=== PATIENT | female | born 1990 | race Caucasian/White ===

== ENCOUNTER 2023-08-28 18:01 | Observation (INO) | payer MEDICAID, SELFPAY ==
--- NOTE | ~2023-08-28 | XR_ITS ---
EXAMINATION: XR LUMBOSACRAL SPINE CLINICAL INFORMATION: Back pain with question muscle strain COMPARISON: None available. TECHNIQUE: Three views of the lumbosacral spine. FINDINGS: There is a scoliosis convex to the right. There is mild disc space narrowing at L4-L5. Vertebral body heights and remainder of disc spaces are well preserved. No fractures or bony destructive lesions. XR/XR lumbar spine 2-3V IMPRESSION: Mild disc space narrowing L4-L5.
[2023-08-28 18:11] VITALS: BP 124/84; BP 128/84; PULSE 71; PULSE 80; RESP 16; TEMP 36.8; O2SAT 98; BMI 32.5
[2023-08-28 18:20] VITALS: BP 124/80; PULSE 78; RESP 16; TEMP 36.8; O2SAT 95
--- NOTE | 2023-08-28 18:39 | ED_ITS ---
HPI - Back Pain/Injury General Chief Complaint: Back Pain/Injury Stated Complaint: back pain x2 weeks, non ambulatory, fentanyl given Time Seen by Provider: 08/28/23 18:31 Source: patient, EMS, RN notes reviewed and old records reviewed Mode of arrival: EMS History of Present Illness ED Provider: Brittny Kong PA-C HPI Narrative: 32-year-old female with no significant past medical history presenting to the ED complaining lower back pain and spasming worsening today s/p injury at the gym last week. 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 States she is unable to stand or move secondary to pain. Denies direct injury, trauma/fall, numbness, tingling, radiation of pain, weakness, incontinence/retention, fever, abdominal pain Related Data Allergies Allergy/AdvReac Type Severity Reaction Status Date / Time amoxicillin Allergy Intermediate Rash Verified 08/28/23 18:17 amoxapine Allergy Rash Verified 08/28/23 18:17 Review of Systems 2 Review of Systems: Constitutional: No Fever, No Chills Cardiovascular: No Chest Pain, No SOB Respiratory: No Cough Gastrointestinal: No Nausea, No Vomiting, No Diarrhea, No Constipation, No Abdominal pain Genitourinary: No Dysuria, No Urinary Incontinence/retention, No Flank Pain Musculoskeletal: + joint pain, No Myalgias, No Joint Swelling Skin: No Skin Lesions, No rash Neuro: No Weakness, No Numbness, No Paresthesias Yes all other systems are reviewed and are negative Constitutional: Constitutional: Reports as per [facility] Past Medical History Attestation statement: The following information was validated with the patient. Source: old records reviewed Social History Social History Smoked in Last 30 Days: Yes Substance Use Type: Marijuana Substance Use Frequency: Daily Substance Use Frequency Other:: nightly Last Used Substance: Days (ago) Any prior treatment program specific to substance use: No Advance Directives: No Advance Directives Information Provided: No Do you have a plan to hurt others: No Plan Patient : No Physical Exam 2 Vital Signs: Vital Signs: Last Vital Signs Temp 98.3 F 08/28/23 21:12 Pulse 62 08/28/23 21:12 Resp 17 08/28/23 21:12 BP 119/71 08/28/23 21:12 Pulse Ox 99 08/28/23 21:12 O2 Del Method Room Air 08/28/23 21:12 BMI result Body Mass Index 32.5 Const: General: cooperative, healthy appearing and no acute distress O rientation/consciousness: patient oriented x3 Limitations: no limitations HEENT: Head: Yes normal to inspection and Yes atraumatic Ears: hearing grossly normal bilaterally General nose exam: Normal external nose present Face and sinus: Yes normal facial exam Eyes: General: appearance normal, both eyes and all related structures EOM: EOMs intact bilaterally Neck: Neck: Yes normal visual inspection and Yes no meningeal signs Resp: Effort & Inspection: normal respiratory effort and no respiratory distress Auscultation: clear to auscultation bilaterally Cardio: Rate: regular rate Heart sounds: S1 normal heart sound present and S2 normal heart sound present GI: Inspection: Yes normal to inspection Palpation (GI): Soft to palpation, nontender, no guarding and not rigid Back/Spine/Pelvis: Other: No midline cervical/thoracic/lumbar spinous tenderness/step-off or deformity. + bilateral lumbar paraspinal reproducible tenderness. No rash/erythema or ecchymosis Skin: Rashes: no rashes Wounds: no wounds Neuro: Other: Strength intact throughout. No saddle anesthesia. Sensation intact to light touch. Neurovascular intact distally General: patient oriented x3, gait normal, tone normal, moves all extremities and no meningeal signs Cranial nerves: Yes CN's II-XII intact bilaterally Extrem: General: Yes normal to inspection Course Course Course Narrative: -patient continues to yell out in discomfort/spasming after multiple doses of IV pain medication including morphine, Toradol, and p.o. Flexeril >> will try 1 mg of IV Dilaudid and re-evaluate >> patient now able to turn on her side for physical exam after IV Dilaudid, however did experience spasming. Plan likely will be for admission unless can achieve better pain control -[id number]--patient is still having severe back spasms. Plan is for admission. Case discussed with Dr. Cedeno who accepted Medications Administered Discontinued Medications Generic Name Dose Route Start Last Admin Trade Name Freq PRN Reason Stop Dose Admin Cyclobenzaprine HCl 10 mg 08/28/23 18:35 08/28/23 18:42 Cyclobenzaprine Hcl 10 Mg Tablet PO 08/28/23 18:36 10 mg ONCE ONE Administration Hydromorphone HCl 1 mg 08/28/23 20:08 08/28/23 20:13 Hydromorphone Hcl 1 Mg/Ml Syringe IVPUSH 08/28/23 20:09 1 mg ONCE ONE Administration Protocol Ketorolac Tromethamine 15 mg 08/28/23 19:36 08/28/23 19:44 Ketorolac Tromethamine 15 Mg/Ml Vial IVPUSH 08/28/23 19:37 15 mg ONCE ONE Administration Morphine Sulfate 4 mg 08/28/23 18:35 08/28/23 18:41 Morphine Sulfate 4 Mg/Ml Cartridge IVPUSH 08/28/23 18:36 4 mg ONCE ONE Administration Protocol Morphine Sulfate 4 mg 08/28/23 19:31 08/28/23 19:45 Morphine Sulfate 4 Mg/Ml Cartridge IVPUSH 08/28/23 19:32 4 mg ONCE ONE Administration Protocol Medical Decision Making Medical Decision Making MDM Narrative: 32-year-old female with no significant past medical history presenting to the ED complaining lower back pain and spasming worsening today s/p injury at the gym last week. On exam vital signs stable, yelling in discomfort, no midline spinous tenderness or red flag symptoms. No evidence of trauma. Concern for MSK pain/muscle spasming. Low suspicion for cauda equina/cord compression, fracture or epidural abscess Plan: Pain management, re-evaluate Please refer to course for remaining clinical decision making, interpretation of labs/imaging results, and discussions with consultants and/or family members. Differential Diagnosis Differential Diagnoses: The differential diagnosis associated with the presentation includes As above Admission/Observation Consideration of admission/observation: Escalation of care including admission/observation considered Lab Data 08/28/23 20:40 08/28/23 20:40 Labs: Lab Results 08/28/23 Range/Units 20:40 WBC 14.4 H (4.8-10.8) X10*3/uL RBC 4.07 L (4.20-5.50) X10*6/uL Hgb 12.0 (12.0-16.0) g/dl Hct 34.7 L (37.0-47.0) % MCV 85.3 (80.0-98.0) fL MCH 29.5 (27.0-33.0) pg MCHC 34.6 (31.0-35.0) g/dl RDW 12.0 (11.0-16.0) % Plt Count 217 (160-400) X10*3/uL MPV 9.9 (9.4-12.3) fL Immature Gran % (Auto) 0.3 (0.0-0.4) % Neut % (Auto) 83.8 H (45-73) % Lymph % (Auto) 12.3 L (20-40) % [place] % (Auto) 3.3 (2-11) % Eos % (Auto) 0.0 (0-4) % Baso % (Auto) 0.3 (0-2) % Lymph # (Auto) 1.8 (1.2-4.9) X10*3/uL [place] # (Auto) 0.5 (0.1-1.2) X10*3/uL Eos # (Auto) 0.0 (0.0-0.4) X10*3/uL Baso # (Auto) 0.1 (0.0-0.2) X10*3/uL Abs Immat Gran (auto) 0.04 H (0.00-0.03) X10*3/uL Absolute Neuts (auto) 12.0 H (2.0-8.3) x10*3/uL Absolute Nucleated RBC 0.000 (0.0-0.012) X10*3/uL Nucleated RBC % (auto) 0.0 (0.0-0.2) /100WBC Sodium 139 (135-145) mmol/L Potassium 3.5 (3.3-5.1) mmol/L Chloride 110 H (96-108) mmol/L Carbon Dioxide 20 L (22-29) mmol/L Anion Gap 13 (12-20) BUN 13 (9-16) mg/dL Creatinine 0.72 (0.5-1.4) mg/dL Estim Creat Clear Calc 106.0 Estimated GFR > 60 Random Glucose 92 (60-115) mg/dL Calcium 8.3 L (8.4-10.2) mg/dL Total Bilirubin 0.4 (0.0-1.0) mg/dL Direct Bilirubin 0.2 (0.0-0.5) mg/dL AST 14 (5-31) U/L ALT 16 (0-31) U/L Alkaline Phosphatase 69 (39-117) U/L Total Protein 6.8 (6.5-8.0) g/dL Albumin 4.0 (3.5-5.0) g/dL Beta HCG, Quant < 2 mIU/mL External Record Review External record reviewed: Inpatient record, Office record, Outpatient record, Prior outpatient labs, Prior outpatient radiology, Primary care record and Outside ED record Tests considered The following testing was considered but not selected: As above Critical Care Time Critical Care Time Critical Care Time: Yes Total Critical Care Time: 40 Attestation: I have personally provided critical care time exclusive of time spent on separately billable procedures. Time includes review of lab data, radiology results, discussion with consultants, and monitoring for potential decompensation. Intervention performed as documented. Discharge Plan Discharge Clinical Impression: Back muscle spasm Patient Disposition: Admitted As Inpatient Print Language: Ugandan
[2023-08-28 18:41] VITALS: RESP 16
[2023-08-28] MEDS: Morphine Sulfate 4 MG/ML CARTRIDGE IVPUSH ×2 (18:41→19:45)
[2023-08-28] MEDS: Cyclobenzaprine HCl 10 MG TABLET PO (18:42)
--- NOTE | 2023-08-28 18:49 | PC.NURSE ---
Pt reports pulling her back about 2 weeks ago at the gym w/back extensions. States a week ago it began to be more painful and the last couple days she has been unable to move from bed with severe back spasms. VSS and afebrile Pt is visibly uncomfortable with frequent crying out. She is unable to tolerate any movement. Provider at bedside, orders given for pain and muscle relaxer--Pt medicated per MAR. Further provider exam to be completed once Pt is more comfortable. Mother at bedside.
[2023-08-28 19:04] VITALS: BP 124/54; PULSE 95; RESP 17; TEMP 37.1; O2SAT 98
[2023-08-28] MEDS: Ketorolac Tromethamine 15 MG/ML VIAL IVPUSH ×2 (19:44→22:00)
[2023-08-28] MEDS: HYDROmorphone HCl 1 MG/ML SYRINGE IVPUSH ×2 (20:13→23:20)
[2023-08-28 20:45] LABS: MANUAL DIFF FLAG NO
[2023-08-28 20:50] LABS: Basophils Absolute Auto 0.1 X10*3/uL (0.0-0.2); Basophils Percent Auto 0.3 % (0-2); Hematocrit 34.7 % (37.0-47.0); Imm Gran Abs Auto 0.04 X10*3/uL (0.00-0.03); Imm Gran Pct Auto 0.3 % (0.0-0.4); Lymphocytes Absolute Auto 1.8 X10*3/uL (1.2-4.9); Lymphocytes Percent Auto 12.3 % (20-40); Mean Corpuscular HGB Conc 34.6 g/dl (31.0-35.0); Mean Corpuscular Hemoglobin 29.5 pg (27.0-33.0); Mean Corpuscular Volume 85.3 fL (80.0-98.0); Mean Platelet Volume 9.9 fL (9.4-12.3); Monocytes Absolute Auto 0.5 X10*3/uL (0.1-1.2); Monocytes Percent Auto 3.3 % (2-11); Neutrophils Percent Auto 83.8 % (45-73); Platelet Count 217 X10*3/uL (160-400); Red Blood Count 4.07 X10*6/uL (4.20-5.50); White Blood Count 14.4 X10*3/uL (4.8-10.8)
[2023-08-28 21:12] VITALS: BP 119/71; PULSE 62; RESP 17; TEMP 36.8; O2SAT 99
[2023-08-28 21:13] LABS: Alanine Aminotransferase 16 U/L (0-31); Alkaline Phosphatase 69 U/L (39-117); Anion Gap 13 (12-20); Aspartate Amino Transferase 14 U/L (5-31); Bilirubin Direct 0.2 mg/dL (0.0-0.5); Bilirubin Total 0.4 mg/dL (0.0-1.0); Blood Urea Nitrogen 13 mg/dL (9-16); Calcium 8.3 mg/dL (8.4-10.2); Carbon Dioxide 20 mmol/L (22-29); Chloride 110 mmol/L (96-108); Estimated Glomerular Filt Rate > 60; Glucose Random 92 mg/dL (60-115); Potassium 3.5 mmol/L (3.3-5.1); Sodium 139 mmol/L (135-145); Total Protein 6.8 g/dL (6.5-8.0)
[2023-08-28 21:15] LABS: HCG Quantitative < 2 mIU/mL
[2023-08-28 21:42] LABS: C Reactive Protein 0.34 mg/dL (< or = 0.50)
--- NOTE | 2023-08-28 22:09 | PC.NURSE ---
pt refused to move to apply the lidocane patch to her back, pt states, when I get more pain medicine pt states my back is spasming and I need a muscle relaxer
[2023-08-28 22:20] LABS: Erythrocyte Sedimentation Rate 10 MM/HR (0-20)
[2023-08-28 23:01] LABS: Appearance Urine Clear; Color Urine Yellow; Glucose Urine UA Negative (Negative); Leukocyte Esterase Urine Negative (Negative); Nitrite Urine Negative (Negative); PH 6.5 (5.0-9.0); Urine Blood Negative (Negative); Urine Ketones 40 mg/dL (Negative); Urine Protein Negative (Neg-Trace)
--- NOTE | 2023-08-28 23:08 | P.HPHOSP_ITS ---
History of Present Illness Date of Service: 08/28/23 Attending physician on admission: Emma Ruiz Chief Complaint: Lower back pain Juana Morton is a 32 years old woman who presents to the emergency department complaining of severe lower back pain which is intermittent in nature. It has been going on since which she attributes to injure at the gym. She denied any lower extremity numbness or urinary/defecation issues. HPI physical examination was limited as the patient was crying and very anxious. In the ED, she was found to to have normal vital signs. There are no significant electrolyte imbalances. Renal function is normal as well as LFTs. test is negative. Urinalysis is normal. Review of Systems 2 Review of Systems: Limited [facility] Social History Patient Tobacco Use Status: Current everyday Tobacco user Tobacco use type: Cigarette Cigarettes Per Day: 2 Second Hand Smoke Exposure: No Substance Use Type: Marijuana Meds Allergies Allergy/AdvReac Type Severity Reaction Status Date / Time amoxicillin Allergy Intermediate Rash Verified 08/28/23 18:17 amoxapine Allergy Rash Verified 08/28/23 18:17 Active Medications: Current Medications Acetaminophen (Acetaminophen 325 Mg Tablet) 975 mg PO TID [facility] Stop: 08/31/23 02:59 Hydromorphone HCl (Hydromorphone Hcl 1 Mg/Ml Syringe) 1 mg IVPUSH Q4H PRN; Protocol PRN Reason: Pain, Severe (Pain Scale 7-10) Lidocaine (Lidocaine 4 % Patch Adh..Patch) 2 patch TRANSDERMA DAILY [facility]; Protocol Naproxen (Naproxen 500 Mg Tablet) 500 mg PO TID [facility] Oxycodone HCl (Oxycodone Hcl Immed Release 5 Mg Tablet) 5 mg PO TID [facility] Stop: 08/30/23 21:01 Sodium Chloride (0.9 % Sodium Chloride Flush 3 Ml Syringe) [address] [facility] Home Medications ?Medication ?Instructions ?Recorded ?Confirmed ?Last Taken ?Type ibuprofen 800 mg tablet 800 mg PO Q8H PRN Pain 08/29/23 08/29/23 Unknown History Physical Exam 2 Vital Signs and Narrative: Vital Signs: Last Vital Signs Temp 98.3 F 08/28/23 21:12 Pulse 62 08/28/23 21:12 Resp 17 08/28/23 21:12 BP 119/71 08/28/23 21:12 Pulse Ox 99 08/28/23 21:12 O2 Del Method Room Air 08/28/23 21:12 BMI result Body Mass Index 32.5 Results Labs 08/28/23 20:40 08/28/23 20:40 Labs: Laboratory Results - last 24 hr 08/28/23 08/28/23 20:40 22:55 MCV 85.3 MCH 29.5 MCHC 34.6 RDW 12.0 Plt Count 217 MPV 9.9 Immature Gran % (Auto) 0.3 Neut % (Auto) 83.8 H Lymph % (Auto) 12.3 L [place] % (Auto) 3.3 Eos % (Auto) 0.0 Baso % (Auto) 0.3 Lymph # (Auto) 1.8 [place] # (Auto) 0.5 Eos # (Auto) 0.0 Baso # (Auto) 0.1 Abs Immat Gran (auto) 0.04 H Absolute Neuts (auto) 12.0 H Absolute Nucleated RBC 0.000 Nucleated RBC % (auto) 0.0 ESR 10 Anion Gap 13 Estim Creat Clear Calc 106.0 Estimated GFR > 60 Random Glucose 92 Calcium 8.3 L Total Bilirubin 0.4 Direct Bilirubin 0.2 AST 14 ALT 16 Alkaline Phosphatase 69 C-Reactive Protein 0.34 Total Protein 6.8 Albumin 4.0 Beta HCG, Quant < 2 Urine Color Yellow Urine Appearance Clear Urine pH 6.5 Ur Specific [place] 1.020 Urine Protein Negative Urine Glucose (UA) Negative Urine Ketones 40 Urine Blood Negative Urine Nitrite Negative Ur Leukocyte Esterase Negative Assessment and Plan (1) Back muscle spasm: Status: Acute (2) Anxiety: Status: Acute Plan Juana Morton is a 32 years old woman presents with: * Severe lower back pain, intractable. Likely due to severe muscle spasm. Observation. Start therapy with anti-inflammatory agents, antispasmodics, and opiate (prn). PT evaluation. * Anxiety. Valium. Quality Stroke Does the patient have a stroke diagnosis?: No VTE Prior VTE?: No VTE Risk Level:: Medical - moderate - high VTE Device Contraindication: Treatment Not Indicated VTE Drug Contraindication: Treatment Not Indicated
[2023-08-28] MEDS: diazePAM 2 MG TABLET PO (23:20)
[2023-08-28 23:31] VITALS: BP 108/69; PULSE 69; RESP 16; TEMP 36.6; O2SAT 93
--- NOTE | 2023-08-28 23:37 | PC.NURSE ---
Report given to Arlin RN, in overflow, all questions answered.
[2023-08-29] MEDS: 0.9 % Sodium Chloride Flush 3 ML SYRINGE IVFLUSH (02:31)
[2023-08-29] MEDS: HYDROmorphone HCl 1 MG/ML SYRINGE IVPUSH ×5 (02:31→23:54)
[2023-08-29] MEDS: Acetaminophen 325 MG TABLET 975 MG PO ×3 (03:24→20:33)
[2023-08-29] MEDS: Lidocaine 4 % Patch ADH..PATCH 2 PATCH TRANSDERMA (08:06)
[2023-08-29] MEDS: oxyCODONE HCl Immed Release 5 MG TABLET PO ×3 (08:06→20:34)
[2023-08-29] MEDS: Cyclobenzaprine HCl 10 MG TABLET PO ×2 (08:07→20:34)
--- NOTE | 2023-08-29 08:22 | MHC.EDTECH ---
Patient is refusing breakfast, patient is also refusing any liquids states she cant sit up to drink and she is requesting IV fluids.
--- NOTE | 2023-08-29 08:28 | PC.NURSE ---
Initial contact with pt. pt is agitated, rambling, rolling around on stretcher. she is adament that she needs IV fluids look at my pee it's so dark. pt refuses to drink water PO. refuses meal. states she wants to crawl outside for a cigarette. refuses to attempt to use restroom for ADLs. father at bedside. MD Wilian Ruiz messaged via [employer] requesting IV fluids.
--- NOTE | 2023-08-29 09:28 | PHA.MEDREC ---
Pharmacy Consult ? Medication Reconciliation Pharmacy has completed the medication reconciliation.
[2023-08-29] MEDS: Lactated Ringers 1,000 ML 100 ML IVCONT ×2 (09:45→20:41)
[2023-08-29] MEDS: Ketorolac Tromethamine 15 MG/ML VIAL IVPUSH ×3 (09:47→23:51)
[2023-08-29] MEDS: ALPRAZolam 0.5 MG TABLET PO ×2 (09:49→20:40)
[2023-08-29] MEDS: Baclofen 20 MG TABLET PO (09:49)
--- NOTE | 2023-08-29 10:35 | P.PNIM_ITS ---
Subjective Subjective Date of Service: 08/29/23 Interval History: seen and evaluated this morning very anxious and complaining of severe spasms no other overnight events Review of Systems Review of Systems: Yes all other systems are reviewed and are negative Physical Exam 2 Vital Signs: Vital Signs: Last Vital Signs Temp 97.8 F 08/28/23 23:31 Pulse 69 08/28/23 23:31 Resp 16 08/28/23 23:31 BP 108/69 08/28/23 23:31 Pulse Ox 93 08/28/23 23:31 O2 Del Method Room Air 08/28/23 23:31 BMI result Body Mass Index 32.5 Const: Other: Constitutional : Awake, interactive, very anxious Cardiovascular : RRR, no JVP, no lower extremity edema Respiratory : good bilateral air entry, no crackles, wheezes or rhonchi Gastrointestinal: soft, lax, Normal bowel sounds, Non tender back: no tenderness Neurological : Alert & oriented x3, No focal deficit Psych; Anxious, pressure speech, no hallucinations Objective Data Active Medications Acetaminophen (Acetaminophen 325 Mg Tablet) 975 mg PO TID [facility] Stop: 08/31/23 02:59 Last Admin: 08/29/23 03:24 Dose: 975 mg Documented By: HAYDEN Alprazolam (Alprazolam 0.25 Mg Tablet) 0.25 mg PO TID PRN PRN Reason: Anxiety Baclofen (Baclofen 10 Mg Tablet) 10 mg PO TID [facility] Cyclobenzaprine HCl (Cyclobenzaprine Hcl 10 Mg Tablet) 10 mg PO BID [facility] Last Admin: 08/29/23 08:07 Dose: 10 mg Documented By: CHAYO Hydromorphone HCl (Hydromorphone Hcl 1 Mg/Ml Syringe) 1 mg IVPUSH Q4H PRN; Protocol PRN Reason: Pain, Severe (Pain Scale 7-10) Last Admin: 08/29/23 06:47 Dose: 1 mg Documented By: HAYDEN Lactated Ringer's (Lr) 1,000 mls @ 100 mls/hr IVCONT .Q10H [facility] Last Admin: 08/29/23 09:45 Dose: 100 mls/hr Documented By: CHAYO Ketorolac Tromethamine (Ketorolac Tromethamine 15 Mg/Ml Vial) 15 mg IVPUSH QSHIFT [facility] Last Admin: 08/29/23 09:47 Dose: 15 mg Documented By: CHAYO Lidocaine (Lidocaine 4 % Patch Adh..Patch) 2 patch TRANSDERMA DAILY [facility]; Protocol Last Admin: 08/29/23 08:06 Dose: 2 patch Documented By: CHAYO Omeprazole (Omeprazole 20 Mg Capsule.Dr) 20 mg PO DAILY@0630 [facility] Last Admin: 08/29/23 09:50 Dose: Not Given Documented By: CHAYO Non-Admin Reason: Patient Refused Oxycodone HCl (Oxycodone Hcl Immed Release 5 Mg Tablet) 5 mg PO TID [facility] Stop: 08/30/23 09:01 Last Admin: 08/29/23 08:06 Dose: 5 mg Documented By: CHAYO Sodium Chloride (0.9 % Sodium Chloride Flush 3 Ml Syringe) 3 ml IVFLUSH [facility] Last Admin: 08/29/23 08:07 Dose: Not Given Documented By: CHAYO Non-Admin Reason: IV Running Labs 08/28/23 20:40 08/28/23 20:40 Labs: Laboratory Results - last 24 hr 08/28/23 08/28/23 20:40 22:55 MCV 85.3 MCH 29.5 MCHC 34.6 RDW 12.0 Plt Count 217 MPV 9.9 Immature Gran % (Auto) 0.3 Neut % (Auto) 83.8 H Lymph % (Auto) 12.3 L [place] % (Auto) 3.3 Eos % (Auto) 0.0 Baso % (Auto) 0.3 Lymph # (Auto) 1.8 [place] # (Auto) 0.5 Eos # (Auto) 0.0 Baso # (Auto) 0.1 Abs Immat Gran (auto) 0.04 H Absolute Neuts (auto) 12.0 H Absolute Nucleated RBC 0.000 Nucleated RBC % (auto) 0.0 ESR 10 Anion Gap 13 Estim Creat Clear Calc 106.0 Estimated GFR > 60 Random Glucose 92 Calcium 8.3 L Total Bilirubin 0.4 Direct Bilirubin 0.2 AST 14 ALT 16 Alkaline Phosphatase 69 C-Reactive Protein 0.34 Total Protein 6.8 Albumin 4.0 Beta HCG, Quant < 2 Urine Color Yellow Urine Appearance Clear Urine pH 6.5 Ur Specific [place] 1.020 Urine Protein Negative Urine Glucose (UA) Negative Urine Ketones 40 Urine Blood Negative Urine Nitrite Negative Ur Leukocyte Esterase Negative Assessment and Plan (1) Back muscle spasm: Status: Acute (2) Anxiety: Status: Acute Plan Juana Morton is a 32 years old woman presents with: Severe lower back pain, intractable due to severe muscle spasm IVF IV Toradol PO Oxycodone PRN BID Flexiril, give Baclofen as well physical activity as tolerated. Anxiety start small dose Xanax DVT PPx early ambulation Quality Stroke Does the patient have a stroke diagnosis?: No VTE Prior VTE?: No VTE Risk Level:: Medical - moderate - high VTE Device Contraindication: Treatment Not Indicated VTE Drug Contraindication: Treatment Not Indicated
[2023-08-29 10:41] VITALS: BP 97/57; PULSE 76; RESP 18; TEMP 37.2; O2SAT 99
--- NOTE | 2023-08-29 11:58 | PC.NURSE ---
Pt refused lunch. Staff attempted to help pt comb her hair and help with ADLs and pt refused.
[2023-08-29] MEDS: ALPRAZolam 0.25 MG TABLET PO (15:27)
[2023-08-29] MEDS: Baclofen 10 MG TABLET PO ×2 (15:27→20:34)
--- NOTE | 2023-08-29 15:35 | PC.NURSE ---
Pt is looking much more relaxed, able to move around in bed. mother at beside helping pt with her hygiene, pt eating food provided by mom.
[2023-08-29 16:44] VITALS: BP 114/73; PULSE 56; RESP 18; TEMP 36.6; O2SAT 99
[2023-08-29 19:48] VITALS: BP 114/79; PULSE 61; RESP 18; TEMP 36.6; O2SAT 93
[2023-08-30] VITALS: BP 115/62; PULSE 62; RESP 20; TEMP 37.2; O2SAT 100
[2023-08-30 04:00] VITALS: BP 147/87; PULSE 76; RESP 20; TEMP 36.7; O2SAT 100
[2023-08-30] MEDS: Lactated Ringers 1,000 ML 100 ML IVCONT (04:53)
[2023-08-30] MEDS: HYDROmorphone HCl 1 MG/ML SYRINGE IVPUSH (04:57)
[2023-08-30] MEDS: ALPRAZolam 0.5 MG TABLET PO (05:02)
[2023-08-30 08:00] VITALS: BP 135/92; PULSE 125; RESP 20; TEMP 36.1; O2SAT 100
[2023-08-30] MEDS: Cyclobenzaprine HCl 10 MG TABLET PO (08:40)
[2023-08-30] MEDS: oxyCODONE HCl Immed Release 5 MG TABLET PO (08:41)
[2023-08-30] MEDS: Acetaminophen 325 MG TABLET 975 MG PO (08:41)
[2023-08-30] MEDS: Baclofen 10 MG TABLET PO ×2 (08:41→14:21)
[2023-08-30] MEDS: 0.9 % Sodium Chloride Flush 3 ML SYRINGE IVFLUSH (08:41)
[2023-08-30] MEDS: Ketorolac Tromethamine 15 MG/ML VIAL IVPUSH (08:48)
--- NOTE | 2023-08-30 09:08 | MHC.CM.PN ---
CM met with Patient at bedside and addressed LI with her(Original to given to Patient and a copy will be placed on the chart). 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 Home/self care is the goal and CM has initiated and will follow for dc planning. Patient is listed as, self pay, and a referral has been made to [facility]. Patient states that she was working on finding a PCP prior to her [facility] lapse and she declined the [facility] pamphlet.
[2023-08-30 09:55] LABS: Hemoglobin 12.1 g/dl (12.0-16.0); Mean Corpuscular HGB Conc 34.6 g/dl (31.0-35.0); Mean Corpuscular Hemoglobin 29.6 pg (27.0-33.0); Mean Corpuscular Volume 85.6 fL (80.0-98.0); Mean Platelet Volume 10.1 fL (9.4-12.3); Platelet Count 198 X10*3/uL (160-400); Red Blood Count 4.09 X10*6/uL (4.20-5.50); Red Cell Distribution Width 11.9 % (11.0-16.0); White Blood Count 8.9 X10*3/uL (4.8-10.8)
[2023-08-30 10:15] LABS: Anion Gap 11 (12-20); Blood Urea Nitrogen 8 mg/dL (9-16); Calcium 8.8 mg/dL (8.4-10.2); Carbon Dioxide 23 mmol/L (22-29); Chloride 105 mmol/L (96-108); Creatinine Clr Calc Pharmacy 104.6; Estimated Glomerular Filt Rate > 60; Glucose Random 96 mg/dL (60-115); Potassium 3.2 mmol/L (3.3-5.1); Sodium 136 mmol/L (135-145)
[2023-08-30] MEDS: diazePAM 5 MG TABLET PO ×2 (10:47→14:16)
[2023-08-30 11:25] VITALS: BP 124/64; PULSE 67; RESP 20; TEMP 36.7; O2SAT 100
--- NOTE | 2023-08-30 14:13 | P.DS_ITS ---
DS: Providers Provider Date of Service: 08/30/23 Date of admission: 08/28/23 23:01 Primary care physician: Unknown Physician DS: Diagnosis Discharge Diagnosis (1) Back muscle spasm: Status: Resolved (2) Anxiety: Status: Inactive DS: Summary Hospital Course Hospital Course: Admission note HPI Juana Morton is a 32 years old woman who presents to the emergency department complaining of severe lower back pain which is intermittent in nature. It has been going on since which she attributes to injure at the gym. She denied any lower extremity numbness or urinary/defecation issues. HPI physical examination was limited as the patient was crying and very anxious. In the ED, she was found to to have normal vital signs. There are no significant electrolyte imbalances. Renal function is normal as well as LFTs. test is negative. Urinalysis is normal. Hospital course The patient was admitted for evaluation of Severe lower back pain, intractable due to severe muscle spasm. She was treated with IVF, IV Toradol, PO Oxycodone PRN, BID Flexiril, TID Baclofen and started on Benzodiazepines for anxiety and as muscle relaxant with fair response over the hospital stay as she was able to ambulate and move around her room. an XR was done to her back showing no bone injury but mild disc space narrowing L4-L5. She will be discharged on muscle relaxant, pain medications, Valium with local measures at home. Advised to find a PCP and start following regularly. Discharge plan Continue medications as prescribed Follow up with primary care physician Time Attestation Discharge Coordination Time (in mins): 26 Quality: Safe Use of Opioids Does Pt have an Active Cancer Diagnosis on the Problem List?: No Quality: Stroke Does the patient have a stroke diagnosis?: No Physical Exam Vital Signs: Vital Signs: Last Vital Signs Temp 98.0 F 08/30/23 11:25 Pulse 67 08/30/23 11:25 Resp 20 08/30/23 11:25 BP 124/64 08/30/23 11:25 Pulse Ox 100 08/30/23 11:25 O2 Del Method Room Air 08/30/23 11:25 BMI result Body Mass Index 32.5 Const: Other: Constitutional : Awake, interactive, very anxious Cardiovascular : RRR, no JVP, no lower extremity edema Respiratory : good bilateral air entry, no crackles, wheezes or rhonchi Gastrointestinal: soft, lax, Normal bowel sounds, Non tender back: no tenderness Neurological : Alert & oriented x3, No focal deficit Psych; Anxious, pressure speech, no hallucinations DS: Data Data Completed and Pending Labs on day of discharge: Laboratory Results - last 24 hr 08/30/23 09:45 WBC 8.9 RBC 4.09 L Hgb 12.1 Hct 35.0 L MCV 85.6 MCH 29.6 MCHC 34.6 RDW 11.9 Plt Count 198 MPV 10.1 Absolute Nucleated RBC 0.000 Nucleated RBC % (auto) 0.0 Sodium 136 Potassium 3.2 L Chloride 105 Carbon Dioxide 23 Anion Gap 11 L BUN 8 L Creatinine 0.73 Estim Creat Clear Calc 104.6 Estimated GFR > 60 Random Glucose 96 Calcium 8.8 D Imaging Chest x-ray: Radiologist's impression: ITS Impressions Lumbar Spine X-Ray 08/30/23 10:00 IMPRESSION: Mild disc space narrowing L4-L5. Discharge Plan Discharge Anticipated Discharge Date/Time: 08/30/23 11:16 Patient Disposition: Home, Self-Care Discharge Diagnosis: Muscle spasm Referrals: Physician,Unknown J [Physician] - 1 Week Discharge Medications: New acetaminophen 325 mg Tablet 975 mg PO TID Qty: 90 0RF baclofen 10 mg Tablet 10 mg PO TID Qty: 30 1RF lidocaine [Lidocaine Pain Relief] 4 % Adhesive Patch,Medicated 2 patch transdermal DAILY Qty: 20 0RF Protocol: Apply to: Apply to: Lower back omeprazole 20 mg Capsule,Delayed Release(Dr/Ec) 20 mg PO DAILY@0630 30 Days Qty: 30 0RF oxycodone 5 mg tablet 5 mg PO Q8H PRN (Reason: pain (scale score 7-10)) Qty: 10 0RF Rx Instructions: Partial Fill upon patient request. diazepam 5 mg tablet 5 mg PO TID PRN (Reason: muscle spasm) Qty: 24 0RF Continued ibuprofen 800 mg Tablet 800 mg PO Q8H PRN (Reason: Pain) Discharge Orders: Discharge Order (Routine); Ordered 08/30/23 Ordered By: Laci Correa Diet: Advance to usual diet Activity on Discharge: As tolerated Stand Alone Forms: Patient Portal Discharge page Print Language: [place] Citizen Activity Restrictions/Additional Instructions: * Physical Therapy: Focus on exercises to strengthen the core and back muscles, improve flexibility, and reduce muscle spasms. * Medications: Nonsteroidal anti-inflammatory drugs (NSAIDs), muscle relaxants, or analgesics to manage pain and inflammation. * Heat and Cold Therapy: Applying heat to relax muscle spasms and cold to reduce inflammation. * Activity Modification: Avoiding activities that exacerbate pain and practicing good posture and body mechanics. Care Plan Goals: Continue medications as prescribed Follow up with primary care physician Health Concerns: Read below Plan of Treatment: Read below Assessment: Read below Discharge Date/Time: 08/30/23 14:55
--- NOTE | 2023-08-30 14:17 | MHC.CM.PN ---
Patient has been medically cleared for dc to home today, self care.
== END 2023-08-30 14:55 | disposition home or self-care (01) ==
LOC: HO.ED 21:41 → HO.EDOVER 23:06 → HO.IMC 08-29 17:02
PROVIDERS: Physician Assistant; Admitting Provider Internal Medicine; Emergency Provider Internal Medicine; Visit Provider Student in an Organized Health Care Education/Training Program
DX: M62.830 Muscle spasm of back (principal); F41.9 Anxiety disorder, unspecified; M54.50 Low back pain, unspecified
CPT/HCPCS: 36415; 72100; 80048; 80076; 81003; 84702; 85025; 85027; 85652; 86140; 96361; 96374; 96375; 96376; 99222; 99285; J1170; J1885; J2270; J7120

== ENCOUNTER → 2023-08-28 23:01 | Outpatient (BNV) | payer MEDICAID, SELFPAY | PROVIDERS: Admitting Provider Internal Medicine; Emergency Provider Internal Medicine; Visit Provider Student in an Organized Health Care Education/Training Program | DX: M62.830 Muscle spasm of back (principal); F41.9 Anxiety disorder, unspecified | CPT/HCPCS: 99222; 99232; 99238 ==